=== PATIENT | female | born 1940 ===

== ENCOUNTER 2018-09-21 05:54 | Outpatient (CLI) | payer MEDICARE, OTHER ==
[~2018-09-21] VITALS: Ht 157.5 cm; Wt 72.6 kg
[2018-09-21] MEDS ORDERED: BUPR150T20 PO (09:42)
[2018-09-21] MEDS ORDERED: NIFE30TA89 PO (09:42)
[2018-09-21] MEDS ORDERED: DEXL30CA2 PO (09:42)
[2018-09-21] MEDS ORDERED: DULO30CA3 PO (09:42)
[2018-09-21] MEDS ORDERED: CALC-823 PO (09:42)
[2018-09-21] MEDS ORDERED: METO50TA15 PO (09:42)
[2018-09-21] MEDS ORDERED: RANI150T90 PO (09:42)
[2018-09-21] MEDS ORDERED: IRON150C3 PO (09:42)
[2018-09-21] MEDS ORDERED: PRAM0.5T9 PO (09:42)
[2018-09-21] MEDS ORDERED: OXYB5TAB9 PO (09:42)
[2018-09-21] MEDS ORDERED: METF-397 PO (09:42)
[2018-09-21] MEDS ORDERED: ASPI-586 PO (09:42)
== END 2018-09-21 09:47 ==
LOC: PREOP 05:54
PROVIDERS: ATTEND Orthopaedic Surgery
DX: Z01.818 Encounter for other preprocedural examination (principal); M79.2 Neuralgia and neuritis, unspecified